=== PATIENT | female | born 1970 | race Two or more races ===

== ENCOUNTER 2024-06-02 21:58 | Emergency (ER) | payer OTHER ==
[~2024-06-02] VITALS: Ht 167.6 cm; Wt 77.1 kg
[2024-06-02] MEDS: IV NS 0.9% 1,000 ML BAG IV ONE (22:50)
[2024-06-02] MEDS ORDERED: MECLIZINE HCL 25 MG TABLET ONE (22:54)
[2024-06-02 22:57] LABS: BASOPHILS # (AUTO) 0.1 K/uL (0.0-0.2); BASOPHILS % (AUTO) 0.7 % (0.0-2.0); EOSINOPHILS % (AUTO) 0.3 % (0.0-6.0); HEMATOCRIT 43 % (33-45); HEMOGLOBIN 14.4 g/dL (11.5-14.8); LYMPHOCYTES # (AUTO) 1.2 K/uL (0.8-4.8); LYMPHOCYTES % (AUTO) 13.1 % (20.0-44.0); MEAN CORPUSCULAR HEMOGLOBIN 30 PG (26.0-33.0); MEAN CORPUSCULAR HGB CONC 34 g/dl (31.0-36.0); MEAN CORPUSCULAR VOLUME 88 fL (82-100); MONOCYTES # (AUTO) 0.4 K/uL (0.1-1.30); MONOCYTES % (AUTO) 4.2 % (2.0-12.0); NEUTROPHILS # (AUTO) 7.5 K/uL (1.8-8.9); NEUTROPHILS % (AUTO) 81.7 % (43.0-81.0); PLATELET COUNT (AUTO) 282 K/uL (150-450); RED BLOOD CELL COUNT(AUTO) 4.84 MIL/uL (4.0-5.2); RED CELL DISTRIBUTION WIDTH 13.8 % (11.5-15.0); WHITE BLOOD COUNT (AUTO) 9.2 K/uL (4.3-11.0)
[2024-06-02] MEDS: MECLIZINE HCL 25 MG TABLET PO ONE (22:59)
[2024-06-02 23:11] LABS: CALCIUM, SERUM 9.7 mg/dL (8.5-10.1); CREATININE 0.8 mg/dL (0.6-1.3); POTASSIUM 3.4 mmol/L (3.5-5.1)
[2024-06-02] MEDS ORDERED: ONDANSETRON HCL/PF 4 MG/2 ML VIAL ONE (23:32)
[2024-06-02] MEDS: ONDANSETRON HCL/PF 4 MG/2 ML VIAL IV ONE (23:35)
[2024-06-03] MEDS ORDERED: MECL-159 PO (00:34)
[2024-06-03] MEDS ORDERED: ONDA4TAB5 PO (00:34)
[2024-06-03 00:42] VITALS: BP 144/80; TEMP 98.9; O2SAT 100
[2024-06-03] MEDS ORDERED: METOCLOPRAMIDE HCL 10 MG/2 ML VIAL ONE (00:57)
[2024-06-03] MEDS: METOCLOPRAMIDE HCL 10 MG/2 ML VIAL IV ONE (01:03)
== END 2024-06-03 01:56 | disposition home or self-care (01) ==
LOC: ER 22:01
DX: H81.399 Other peripheral vertigo, unspecified ear (principal)
CPT/HCPCS: 99284; 96374; 96361; 93005; 85025; 80048; 36415; 96375; J8597; J2405; J7030; J2765